=== PATIENT | male | born 1940 ===

== ENCOUNTER → 2018-06-02 17:30 | Outpatient (REF) | payer MEDICARE, SELFPAY | LOC: LAB 17:30 | PROVIDERS: Visit Provider Dermatology | DX: R21 Rash and other nonspecific skin eruption (principal); D49.2 Neoplasm of unspecified behavior of bone, soft tissue, and skin | CPT/HCPCS: 87070; 87075; 87077; 87186; 87205 ==

== ENCOUNTER → 2018-06-21 17:49 | Outpatient (REF) | payer MEDICARE, SELFPAY | LOC: LAB 17:49 | PROVIDERS: Visit Provider Dermatology | DX: L20.84 Intrinsic (allergic) eczema (principal); L98.8 Other specified disorders of the skin and subcutaneous tissue; L29.8 Other pruritus; L53.8 Other specified erythematous conditions; R23.3 Spontaneous ecchymoses; L82.1 Other seborrheic keratosis; L82.0 Inflamed seborrheic keratosis; B35.3 Tinea pedis | CPT/HCPCS: 87077; 87102; 87107 ==

== ENCOUNTER → 2018-12-06 18:06 | Outpatient (REF) | payer MEDICARE, SELFPAY ==
[2018-12-10 13:56] LABS: Miscellaneous to LabCorp SEE COMBINED REPORT
== END ==
LOC: LAB 18:06
PROVIDERS: Visit Provider Family Medicine Geriatric Medicine
DX: C44.90 Unspecified malignant neoplasm of skin, unspecified (principal)
CPT/HCPCS: 88305